=== PATIENT | female | born 1995 ===

== ENCOUNTER 2020-05-29 14:40 | Inpatient (IN) | payer SELFPAY ==
[2020-05-29] MEDS ORDERED: TERBUTALINE 1 MG/1 ML INJ SUB-Q PRN (17:44)
[2020-05-29] MEDS ORDERED: fentaNYL 100 MCG/2 ML INJ IV PRN (17:44)
[2020-05-29] MEDS ORDERED: LIDOCAINE (2%) 20 MG/1 ML VIAL 20 ML MDV INFILTRATI ONE (17:44)
[2020-05-29] MEDS ORDERED: MINERAL OIL 30 ML ORAL LIQD PO PRN (17:44)
[2020-05-29] MEDS ORDERED: ePHEDrine SULFATE 50 MG/1 ML INJ IV PRN (17:44)
--- NOTE | 2020-05-29 17:51 | History and Physical Report ---
History of Present Illness Date of examination: 05/29/20 Date of admission: 05/29/2020 Chief complaint: Contractions History of present illness: 24 year old presents with complaint of contractions. Patient denies leaking of fluid or vaginal bleeding. LMP 08/11/2019. EDC 06/16/20 by US done at 6 weeks gestation. Patient received care at [facility]. significant for the following: UT (strep viridans) treated; anemia. labs are as follows: O+, antibody screen negative, rubella immune, hepatitis B surface antigen negative, HIV negative, RPR nonreactive, gonorrhea negative, chlamydia negative, GBS negative, 1 hour sugar test 102, AFP negative. 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: denies: chlamydia, gonorrhea, hepatitis B, hepatitis C, herpes, HIV, syphilis, trichomonas Family/Genetic History: none Social history: no significant social history - Obstetrical History Expected Date of Delivery: 06/16/20 Actual Gestation: 37 Week(s) 3 Day(s) : 1 Para: 0 Hx # Term Pregnancies: 0 Number of Pregnancies: 0 Spontaneous Abortions: 0 Induced : 0 Number of Living Children: 0 Review of Systems All systems: negative (contractions) - Vital Signs Vital signs: Vital Signs Temp Pulse Resp BP 98.4 F 88 14 121/76 05/29/20 15:59 05/29/20 15:59 05/29/20 15:59 05/29/20 15:59 Temp Pulse Resp BP Pulse Ox 98.4 F 88 14 121/76 05/29/20 15:59 05/29/20 15:59 05/29/20 15:59 05/29/20 15:59 - Physical Exam Abdomen: Positive: normal appearance, soft. Negative: distention, tenderness, guarding, rigidity Genitourinary (Female): Positive: normal external genitalia, normal perenium. Negative: perineal/vulvar lesions Vagina: Positive: normal moisture Uterus: Positive: enlarged. Negative: tender Anus/Rectum: Positive: normal perianal skin - Obstetrical FHR: category 1 Uterine Contraction Monitor Mode: External Cervical Dilatation: 5 Cervical Effacement Percentage: 80 station: -3 Uterine Contraction Pattern: Regular Uterine Contraction Intensity: Moderate Results All other labs normal. Assessment and Plan A: at 37 weeks, 3 day gestation. Active labor. GBS negative. P: Admit. EFM. Anticipate vaginal .
[2020-05-29] MEDS ORDERED: OXYTOCIN DRIP 30 UNITS/500 ML BAG IV SCH ×2 (18:00→19:00)
[2020-05-29 18:43] LABS: Hematocrit 39.3 % (30.3-42.9); Hemoglobin 12.6 gm/dl (10.1-14.3); Mean Corpuscular HGB Conc 32 % (30-34); Mean Corpuscular Volume 85 fl (79-97); Platelet Count 244 K/mm3 (140-440); Red Blood Count 4.64 M/mm3 (3.65-5.03)
[2020-05-29] MEDS ORDERED: LACTATED RINGERS 1,000 ML IV SCH (18:45)
[2020-05-30] MEDS ORDERED: ONDANSETRON 4 MG/2 ML INJ IV PRN (01:30)
[2020-05-30] MEDS ORDERED: diphenhydrAMINE 50 MG/ML VIAL IV PRN (01:30)
[2020-05-30] MEDS ORDERED: NALOXONE 2 MG/2 ML INJ IV PRN (01:30)
[2020-05-30] MEDS ORDERED: NalbUPHINE 10 MG/1 ML INJ IV PRN (01:30)
[2020-05-30] MEDS ORDERED: fentaNYL-BUPIV 2 MCG/ML-0.125% 200 MCG/100 ML BAG EPIDURAL SCH (02:00)
--- NOTE | 2020-05-30 02:02 | Anesthesia Consultation ---
Anesthesia Consult and Med Hx Date of service: 05/30/20 - Airway Anesthetic Teeth Evaluation: Good ROM Head & Neck: Adequate Mental/Hyoid Distance: Adequate Mallampati Class: Class II Intubation Access Assessment: Probably Good - Pulmonary Exam CTA: Yes - Cardiac Exam Cardiac Exam: RRR - Pre-Operative Health Status ASA Pre-Surgery Classification: ASA2 Proposed Anesthetic Plan: Epidural - Pulmonary Hx Smoking: No Hx Asthma: No Hx Sleep Apnea: No - Cardiovascular System Hx Hypertension: No Hx Heart Attack/AMI: No Hx Angina: No - Central Nervous System Hx Seizures: No Hx Psychiatric Problems: No - Gastrointestinal Hx Gastroesophageal Reflux Disease: No - Endocrine Hx Renal Disease: No Hx Insulin Dependent Diabetes: No Hx Non-Insulin Dependent Diabetes: No Hx Hypothyroidism: No Hx Hyperthyroidism: No - Hematic Hx Anemia: No Hx Sickle Cell Disease: No - Other Systems Hx Alcohol Use: No
--- NOTE | 2020-05-30 02:03 | Progress Note ---
Labor Epidural - Labor Epidural Start Time: 01:40 Stop Time: 01:55 Performed by:: JARRETT FELICIANO Procedure: Patient is requesting combined spinal epidural for labor and pain. H&P, labs were reviewed. All questions and concerns were answered. Informed consent was obtained. Timeout performed. Patient in sitting position on side of bed. Sterile prep and drape was performed. 3 mL 1% lidocaine skin wheal at L [3]-L [4]. 18-gauge Tuohy epidural needle advanced to [id number] using air technique, [6]. 27-gauge spinal needle advanced, positive free-flowing CSF. Spinal dose of [Marcaine 3.8mg]. Epidural catheter advanced to [11] cm. [negative] Aspiration, [negative] test dose. Sterile dressing applied. Patient tolerated procedure well.
--- NOTE | 2020-05-30 02:29 | Event Note ---
Date: 05/30/20 Patient has just received epidural. Cervix is completely dilated now, vtx at +1 station, BBOW. Will allow patient to labor down as she has no feeling of pressure or urge to push yet.
[2020-05-30] MEDS ORDERED: LIDOCAINE (2%) 20 MG/1 ML VIAL 20 ML MDV INFILTRATI ONE (06:14)
[2020-05-30] MEDS ORDERED: LANOLIN/ZINC/DIMETHICONE (LANSINOH) 7 GM TP PRN (08:00)
[2020-05-30] MEDS ORDERED: WITCH HAZEL/ GLYCERIN PAD TP PRN (08:00)
--- NOTE | 2020-05-30 08:08 | Procedure Note ---
OB Delivery Note - Delivery Date of Delivery: 05/30/20 Surgeon: AMANUEL HUNTER Estimated blood loss: other (400 cc) - Vaginal Delivery presentation: vertex Delivery position: OA Intrapartum events: none Delivery induction: none Delivery monitor: external FHT, external uterine Route of delivery: Delivery placenta: spontaneous Delivery cord: 3 umbilical vessels Episiotomy: midline Delivery laceration: 1st degree, 2nd degree Delivery repair: vicryl Anesthesia: local, epidural Delivery comments: Spontaneous vaginal delivery at 05:15 of liveborn female weighing 3.637 kg over 2nd degree midline episiotomy with apgars of 8/9. Baby placed skin to skin with mom immediately after . Spontaneous cry and respirations. Baby suctioned with bulb syringe and dried with warm towels. 3 vessel cord double clamped and cut and baby taken to radiant warmer for further suctioning. Cord blood obtained. Spontaneous delivery of intact placenta and membranes by cordero mechanism at 05:21. Pitocin to IV fluids after delivery of placenta. Fundus firm and midline. Vaginal hematoma and several large vaginal lacerations noted; ca lled Dr. Dodd to repair vagina. Dr. Dodd came and repaired vagina and evaluated hematoma. 2nd degree perineal laceration and bilateral 1st degree periurethral lacerations repaired by Arabella Hunter CNM; vaginal lacerations repaired by Dr. Dodd. Vagina packed with sterile packing per Dr. Dodd's recommendation. Vaginal sweep negative prior to placement of vaginal packing. Sponge count correct and sharp count correct. EBL 400 cc. Mother and baby stable in birthing room.
--- NOTE | 2020-05-30 08:14 | Event Note ---
Date: 05/30/20 Called to assess perineal laceration with small 3 x 3 cm right vaginal hematoma at the site of the laceration. Hematoma did not appear to be expanding. Closed perineal laceration with 2-0 vicryl around hematoma. Resumed care to PARK Hunter for completion of repair and vaginal packing placement.
[2020-05-30] MEDS ORDERED: FERROUS SULFATE 325 MG TAB PO SCH (10:00)
--- NOTE | 2020-05-30 11:29 | Post Anesthesia Evaluation ---
- Post Anesthesia Evaluation Patient Participated: Yes Airway Patent: Yes Stable Respiratory Function: Yes Nausea/Vomiting: No Temp > 96.8F: Yes Pain Manageable: Yes Adequeate Hydration: Yes Anesthesia Complications: No Block Receding Appropriately: Yes Patient on Ventilator: No
[2020-05-30] MEDS: HYDROcodone/ACETAMINOPHEN 5-325 MG TAB PO SCH ×2 (11:57→17:53)
[2020-05-30] MEDS: DOCUSATE SODIUM 100 MG CAP PO SCH ×2 (11:57→22:24)
[2020-05-30] MEDS: IBUPROFEN 600 MG TAB PO SCH ×3 (11:57→20:00)
[2020-05-30 19:50] LABS: Hematocrit 25.6 % (30.3-42.9); Hemoglobin 8.5 gm/dl (10.1-14.3)
[2020-05-30] MEDS ORDERED: MAGNESIUM HYDROXIDE (MOM) ORAL LIQD UDC PO PRN (22:00)
[2020-05-31] MEDS: IBUPROFEN 600 MG TAB PO SCH (05:17)
[2020-05-31] MEDS: HYDROcodone/ACETAMINOPHEN 5-325 MG TAB PO SCH ×2 (06:00)
--- NOTE | 2020-05-31 09:46 | Progress Note ---
Assessment and Plan A: S/P Asymptomatic anemia P: Continue routine pp care Ferrous Sulfate prescribed D/C home tomm if stable Subjective - Subjective Date of service: 05/31/20 Principal diagnosis: s/p Patient reports: appetite normal, voiding normally, pain well controlled, ambulating normally [place]: doing well, nursing well Objective - Vital Signs Latest vital signs: Vital Signs Temp Pulse Resp BP BP Pulse Ox 05/31/20 07:39 97.9 F 88 18 96/57 94 05/31/20 01:05 97.9 F 87 18 119/67 97 05/30/20 16:40 98.4 F 82 18 130/72 98 05/30/20 12:31 98.7 F 121 H 18 109/61 95 05/30/20 10:00 99.4 F 114 H 18 121/69 Intake and Output 05/30/20 05/31/20 05/31/20 22:59 06:59 14:59 Intake Total 480 600 Output Total 950 Balance -470 600 Intake: Intake, Free Water 480 600 Output: Urine 950 Void 950 Other: Total, Output Amount 300 # Voids Void 2 - Exam Breasts: Present: normal Abdomen: Present: normal appearance, soft, normal bowel sounds Vulva: both: normal Uterus: Present: normal, firm, fundal height below umbilicus Extremities: Present: normal Incision: Present: normal, intact - Labs Labs: Abnormal lab results 05/30/20 Range/Units 19:35 Hgb 8.5 L D (10.1-14.3) gm/dl Hct 25.6 L D (30.3-42.9) %
[2020-05-31] MEDS ORDERED: FERROUS SULFATE 325 MG TAB PO SCH (10:00)
--- NOTE | 2020-05-31 16:16 | Discharge Summary ---
Providers - Providers Date of Admission: 05/30/20 06:07 Date of discharge: 05/31/20 Attending physician: SIENA GARCIA JR, MD Primary care physician: SIENA GARCIA JR, MD Hospitalization Reason for admission: active labor, IUP at term Delivery: Episiotomy: none Laceration: vaginal side wall, 2nd degree, other (hematoma with several lg vag lacerations and 2nd degree perineal tear) Incision: normal, intact Other procedures: none complications: hematoma, perineal laceration, other (anemia) Discharge diagnosis: IUP at term delivered baby: female Hospital course: Pt arrived in active labor. She had a with a 2nd degree perineal lac and several lg vag lacerations with a hematoma and required packing. Uncomplicated pp stay. See H&P, delivery summary, and pp note. Pt was d/c'd home per her request. Condition at discharge: Stable Disposition: DC-01 TO HOME OR SELFCARE Plan - Discharge Medications Prescriptions: Ibuprofen [Motrin 600 MG tab] 600 mg PO Q6H #30 tablet - Provider Discharge Summary Additional instructions: [] Smoking cessation referral if applicable(refer to patient education folder for contact #) [] Refer to [facility] Booklet Call your doctor immediately for: * Fever > 100.5 * Heavy vaginal bleeding ( >1 pad per hour) * Severe persistent headache * Shortness of breath * Reddened, hot, painful area to leg or breast * Drainage or odor from incision. * Keep incision clean and dry at all times and follow doctor's instructions regarding bathing/showering - Follow up plan Follow up: SIENA GARCIA JR, MD [Primary Care Provider] - 6 Weeks Forms: [facility] Discharge Summary
[2020-05-31 17:35] VITALS: BP 115/61
== END 2020-05-31 18:28 | disposition home or self-care (01) | DRG 807 ==
LOC: LD 14:40 → TRG 14:40 → APU 14:41 → TRG 05-30 06:04 → LD 05-30 06:07 → OB 05-30 10:32
PROVIDERS: ADMIT Obstetrics & Gynecology; ATTEND Obstetrics & Gynecology
PROC: 10E0XZZ Delivery of Products of Conception, External Approach (ICD-10-PCS; principal; 2020-05-30)
PROC: 0KQM0ZZ Repair Perineum Muscle, Open Approach (ICD-10-PCS; 2020-05-30)
PROC: 3E0R3BZ Introduction of Anesthetic Agent into Spinal Canal, Percutaneous Approach (ICD-10-PCS; 2020-05-30)
PROC: 00HU33Z Insertion of Infusion Device into Spinal Canal, Percutaneous Approach (ICD-10-PCS; 2020-05-30)
DX: O70.1 Second degree perineal laceration during delivery (principal); Z37.0 Single live birth; Z3A.37 37 weeks gestation of pregnancy; Z20.822 Contact with and (suspected) exposure to COVID-19; D64.9 Anemia, unspecified
CPT/HCPCS: 36415; 85014; 85018; 85027; 86850; 86900; 86901; G0378; J3010; J7120; U0003